=== PATIENT | female | born 1955 | race Caucasian/White ===

== ENCOUNTER 2024-02-17 12:18 | Outpatient (CLI) | payer MEDICARE | END 2024-02-17 12:19 | disposition home or self-care (01) | LOC: CSHULT 12:18 | PROVIDERS: ATTEND Internal Medicine Cardiovascular Disease | DX: I48.0 Paroxysmal atrial fibrillation (principal); I48.3 Typical atrial flutter; I44.2 Atrioventricular block, complete; I51.7 Cardiomegaly | CPT/HCPCS: 93306 ==